=== PATIENT | male | born 1990 | race African-American/Black ===

== ENCOUNTER 2022-09-08 12:36 | Emergency (ER) | payer SELFPAY | END 2022-09-08 14:21 | disposition home or self-care (01) | LOC: ERS 12:36 | DX: J06.9 Acute upper respiratory infection, unspecified (principal); H10.9 Unspecified conjunctivitis; I10 Essential (primary) hypertension; F17.210 Nicotine dependence, cigarettes, uncomplicated; Z79.899 Other long term (current) drug therapy | CPT/HCPCS: 99283 ==

== ENCOUNTER 2022-09-27 23:48 | Emergency (ER) | payer SELFPAY ==
[2022-09-28] MEDS ORDERED: Acetaminophen 325 MG TAB ONE (01:45)
== END 2022-09-28 02:21 | disposition home or self-care (01) ==
LOC: ERS 23:48
DX: S76.012A Strain of muscle, fascia and tendon of left hip, initial encounter (principal); I10 Essential (primary) hypertension; F17.210 Nicotine dependence, cigarettes, uncomplicated; X58.XXXA Exposure to other specified factors, initial encounter
CPT/HCPCS: 72170

== ENCOUNTER 2024-04-10 00:32 | Inpatient (IN) | payer SELFPAY ==
[2024-04-10] MEDS ORDERED: Ziprasidone 20 MG CAP ONE (02:34)
[2024-04-10] MEDS ORDERED: diphenhydrAMINE 50 MG/ML VIAL ONE (02:56)
[2024-04-10] MEDS ORDERED: Lorazepam 2 MG/ML VIAL ONE (02:57)
[2024-04-10] MEDS ORDERED: Haloperidol Lactate 5 MG/ML VIAL ONE (02:57)
[2024-04-10 03:42] LABS: #Basophils 0.04 10x3/uL (0.0-0.2); #Eosinphils Less than 0.03 10x3/uL (0.0-0.7); %Basophils 0.4 % (0.0-1.0); %Eosinophils 0.1 % (0.0-10.0); %Lymphocytes 14.2 % (21.0-51.0); %Monocytes 5.3 % (0.0-10.0); %Neutrophils 79.6 % (42.0-75.0); Hematocrit 50.6 % (42.0-52.0); Hemoglobin 16.7 g/dL (14.0-18.0); Mean Corpuscular Volume 81.9 fL (78.0-98.0); Mean Platelet Volume 9.2 fL (7.4-10.4); Platelet Count 393 10x3/uL (130-400); RBC Distribution Width 13.9 % (11.5-14.5); Red Blood Cell (RBC) Count 6.18 mill/uL (4.70-6.10)
[2024-04-10 04:03] LABS: ALT (SGPT) 11 U/L (8-55); AST (SGOT) 15 U/L (5-34); Albumin 4.6 g/dL (3.5-5.0); Alkaline Phosphatase 79 U/L (40-110); Anion Gap 24 mmol/L (10-20); BUN (Urea Nitrogen) 25 mg/dL (8.9-20.6); Bilirubin, Total 0.8 mg/dL (0.2-1.2); Calc. Creatinine Clearance 0 mL/min (70-130); Calcium 10.6 mg/dL (7.8-10.44); Carbon Dioxide 14 mmol/L (22-29); Chloride 101 mmol/L (98-107); Estimated GFR 34; Globulin 3.6 g/dL (2.4-3.5); Glucose 107 mg/dL (70-105); Protein, Total 8.2 g/dL (6.0-8.3); Sodium 135 mmol/L (136-145)
[2024-04-10 04:04] LABS: Acetaminophen Less than 10 mcg/mL (Less than 10); Alcohol Less than 10.0 mg/dL (Less than 10); Salicylate Less than 8.0 mg/dL (Less than 8.0)
[2024-04-10] MEDS ORDERED: Acetaminophen 325 MG TAB PO PRN (07:45)
[2024-04-10] MEDS ORDERED: Guaifenesin DM 100-10/5 ML UDCUP PO PRN (07:45)
[2024-04-10] MEDS ORDERED: Ondansetron PF 4 MG/2 ML Vial IVP PRN (07:45)
[2024-04-10] MEDS ORDERED: Senokot S 8.6-50 MG TAB PO PRN (07:45)
[2024-04-10] MEDS ORDERED: Lorazepam 2 MG/ML VIAL SLOW IVP PRN (07:48)
[2024-04-10 08:19] VITALS: BMI 25.9
[2024-04-10] MEDS: Enoxaparin 40 MG (0.4 mL) SYRINGE SC SCH (09:56)
[2024-04-10] MEDS: Sodium Bicarbonate 100 MEQ in Dextrose 5% in Water 1,000 ML IV SCH (09:57)
[2024-04-10] MEDS: Sodium Bicarbonate 150 MEQ in Dextrose 5% in Water 1,000 ML IV SCH (11:04)
[2024-04-10 18:49] LABS: Bacteria/HPF None Seen HPF (None Seen); Bilirubin Negative (Negative); Blood, Urine Negative (Negative); Clarity Clear (Clear); Glucose, Urine (Dipstick) Normal (Negative); Ketone, Urine 10 mg/dL (Negative); Leukocyte Negative Leu/uL (Negative); Nitrite Negative (Negative); Protein, Urine (Dipstick) 30 mg/dL (Neg-Trace); RBC/HPF 0-3 HPF (0-3); Specific Gravity, Urine 1.026 (1.002-1.036); Squamous Epithelial None Seen HPF (0-3); Urobilinogen Normal mg/dL (Less than 2); WBC/HPF None Seen HPF (0-3); pH, Urine 5.5 (5.0-9.0)
[2024-04-10 19:06] LABS: Amphetamine Detected (NotDetected); Barbiturates Screen Not Detected (NotDetected); Benzodiazepine Screen Detected (NotDetected); Cocaine Metabolite Screen Not Detected (NotDetected); Methadone Not Detected (NotDetected); Methamphetamine Detected (NotDetected); Opiate Screen Not Detected (NotDetected); Oxycodone Screen Not Detected (NotDetected); Phencyclidine (PCP) Not Detected (NotDetected); THC/Cannabinoid Screen Detected (NotDetected); Tricyclic Screen Not Detected (NotDetected)
[2024-04-10 19:41] LABS: Creatinine, Urine 401.45 mg/dL (63-166)
[2024-04-10 20:54] LABS: Anion Gap 11 mmol/L (10-20); BUN (Urea Nitrogen) 17 mg/dL (8.9-20.6); CK (CPK) 748 U/L (30-200); Calc. Creatinine Clearance 108 mL/min (70-130); Carbon Dioxide 27 mmol/L (22-29); Chloride 101 mmol/L (98-107); Estimated GFR 78; Glucose 113 mg/dL (70-105); Potassium 3.4 mmol/L (3.5-5.1); Sodium 136 mmol/L (136-145)
[2024-04-11 06:12] LABS: #Basophils 0.04 10x3/uL (0.0-0.2); %Basophils 0.8 % (0.0-1.0); %Lymphocytes 43.8 % (21.0-51.0); %Monocytes 10.6 % (0.0-10.0); %Neutrophils 42.4 % (42.0-75.0); Hematocrit 39.9 % (42.0-52.0); Hemoglobin 12.9 g/dL (14.0-18.0); Mean Corpuscular HGB CONC 32.3 g/dL (32.0-36.0); Mean Corpuscular Hemoglobin 26.8 pg (27.0-31.0); Mean Corpuscular Volume 82.8 fL (78.0-98.0); Mean Platelet Volume 9.3 fL (7.4-10.4); Platelet Count 282 10x3/uL (130-400); RBC Distribution Width 13.8 % (11.5-14.5); Red Blood Cell (RBC) Count 4.82 mill/uL (4.70-6.10)
[2024-04-11 06:25] LABS: ALT (SGPT) 12 U/L (8-55); AST (SGOT) 21 U/L (5-34); Albumin 3.2 g/dL (3.5-5.0); Alkaline Phosphatase 56 U/L (40-110); Anion Gap 9 mmol/L (10-20); BUN (Urea Nitrogen) 13 mg/dL (8.9-20.6); Bilirubin, Total 0.6 mg/dL (0.2-1.2); CK (CPK) 692 U/L (30-200); Calc. Creatinine Clearance 111 mL/min (70-130); Calcium 8.8 mg/dL (7.8-10.44); Carbon Dioxide 33 mmol/L (22-29); Chloride 99 mmol/L (98-107); Estimated GFR 80; Globulin 2.4 g/dL (2.4-3.5); Glucose 97 mg/dL (70-105); Potassium 3.5 mmol/L (3.5-5.1); Protein, Total 5.6 g/dL (6.0-8.3); Sodium 137 mmol/L (136-145)
[2024-04-11] MEDS: Sodium Chloride 0.9% 1,000 ML IV SCH (08:18)
[2024-04-12 06:31] LABS: Anion Gap 11 mmol/L (10-20); BUN (Urea Nitrogen) 9 mg/dL (8.9-20.6); CK (CPK) 646 U/L (30-200); Calc. Creatinine Clearance 129 mL/min (70-130); Calcium 8.2 mg/dL (7.8-10.44); Carbon Dioxide 29 mmol/L (22-29); Chloride 107 mmol/L (98-107); Estimated GFR 96; Glucose 91 mg/dL (70-105); Potassium 3.7 mmol/L (3.5-5.1); Sodium 143 mmol/L (136-145)
[2024-04-12 11:49] VITALS: BP 120/77; TEMP 98.1
== END 2024-04-12 12:14 | disposition home or self-care (01) | DRG 92 ==
LOC: EEVIPCON 00:32 → ERS 00:32 → T4-B 05:53
PROVIDERS: ADMIT Student in an Organized Health Care Education/Training Program; ATTEND Family Medicine
DX: G92.8 Other toxic encephalopathy (principal); E87.1 Hypo-osmolality and hyponatremia; E87.21 Acute metabolic acidosis; F15.20 Other stimulant dependence, uncomplicated; N17.9 Acute kidney failure, unspecified; R44.3 Hallucinations, unspecified; M62.82 Rhabdomyolysis; E87.3 Alkalosis; F12.10 Cannabis abuse, uncomplicated; F32.A Depression, unspecified; I10 Essential (primary) hypertension; F41.9 Anxiety disorder, unspecified; Z88.1 Allergy status to other antibiotic agents; Z88.8 Allergy status to other drugs, medicaments and biological substances; Z79.899 Other long term (current) drug therapy; E83.52 Hypercalcemia; E86.9 Volume depletion, unspecified
CPT/HCPCS: 36415; 70450; 80048; 80053; 80306; 80307; 81001; 82550; 82570; 84156; 84300; 84443; 85025; 96360; 96372; J1200; J1630; J1650; J2060; J7030; J7070